=== PATIENT | male | born 1955 | race Caucasian/White ===

== ENCOUNTER → 2016-10-02 | Outpatient (CLI) | payer MEDICARE, OTHER | LOC: CT 08:48 | DX: R11.0 Nausea (principal); R74.8 Abnormal levels of other serum enzymes | CPT/HCPCS: 74160; J7050; Q9965 ==

== ENCOUNTER → 2016-10-03 | Outpatient (CLI) | payer MEDICARE, OTHER | LOC: US 09:41 | DX: R11.0 Nausea (principal); R74.8 Abnormal levels of other serum enzymes | CPT/HCPCS: 76705 ==